=== PATIENT | male | born 1965 | race Caucasian/White ===

== ENCOUNTER 2017-05-09 17:50 | Emergency (ER) | payer OTHER ==
[~2017-05-09] VITALS: Ht 177.8 cm; Wt 79.0 kg
[~2017-05-09 17:50] MED LIST: ALDACTONE100 MG PO; ASPIRIN81 M1 PO; Aspirin E.C. PO; Chronulac,Cephulac PO; Chronulac,Cephulac,E PO; Habitrol,Nicoderm CQ TD; Hytone 2.5% TP; K-Dur PO; MORPHINE SULFAT15 M1 PO; MS Contin,Oramorph S PO; PriLOSEC PO; Protonix PO; Pyridoxine,Vitamin B PO; Theragran-M,Centrum, PO; VICOPROFEN1 TABLET PO; ZESTRIL40 MG PO; Zestril,Prinivil PO
[2017-05-09] MEDS ORDERED: FLOXIN OTIC SOLN5 ML RIGHT EAR (19:03)
[2017-05-09] MEDS ORDERED: AMOXICILLIN500 MG PO (19:04)
[2017-05-09] MEDS ORDERED: NAPROSYN500 MG PO (19:04)
[2017-05-09 19:13] VITALS: BP 169/96
== END 2017-05-09 19:14 | disposition home or self-care (01) ==
LOC: EME 17:50
DX: H60.502 Unspecified acute noninfective otitis externa, left ear (principal); Z87.891 Personal history of nicotine dependence
CPT/HCPCS: 99281; 99283

== ENCOUNTER 2017-11-30 15:11 | Emergency (ER) | payer OTHER ==
[~2017-11-30] VITALS: Ht 177.8 cm; Wt 83.8 kg
[~2017-11-30 15:11] MED LIST changes: +AMOXICILLIN500 MG PO; +FLOXIN OTIC SOLN5 ML RIGHT EAR; +NAPROSYN500 MG PO
[2017-11-30 19:26] LABS: APPEARANCE CLEAR ((CLEAR)); BILIRUBIN NEGATIVE; BLOOD MODERATE; COLOR YELLOW ((YELLOW)); GLUCOSE (STRIP) NEGATIVE; KETONES NEGATIVE; LEUKOCYTES NEGATIVE; NITRITE NEGATIVE; PROTEIN (STRIP) 30; SPECIFIC GRAVITY 1.011 (1.000-1.030); UROBILINOGEN 0.2 MG/DL (0.2-1.0)
[2017-11-30 19:40] LABS: BACTERIA RARE /HPF; EPITHELIAL CELLS RARE /HPF; MUCUS NONE SEEN /LPF; UCUL ADDED? NO; WHITE BLOOD CELLS 0-5 /HPF (0-5)
[2017-11-30 20:21] VITALS: BP 182/109
== END 2017-11-30 20:21 | disposition home or self-care (01) ==
LOC: EME 15:11
PROVIDERS: Physician Assistant Medical
DX: N43.3 Hydrocele, unspecified (principal); I10 Essential (primary) hypertension; F17.200 Nicotine dependence, unspecified, uncomplicated
CPT/HCPCS: 76870; 81003; 99281; 99284

== ENCOUNTER 2018-01-27 16:53 | Emergency (ER) | payer OTHER ==
[~2018-01-27] VITALS: Ht 177.8 cm; Wt 80.0 kg
[2018-01-27 17:51] LABS: INTER. NORMALIZED RATIO 1.2
[2018-01-27 17:54] LABS: PTT 34.1 SEC (25-37)
[2018-01-27 20:30] VITALS: BP 156/80
== END 2018-01-27 20:31 | disposition home or self-care (01) ==
LOC: EME 16:53
PROVIDERS: Physician Assistant Medical
DX: M79.89 Other specified soft tissue disorders (principal); I10 Essential (primary) hypertension; K74.60 Unspecified cirrhosis of liver; K21.9 Gastro-esophageal reflux disease without esophagitis; F17.200 Nicotine dependence, unspecified, uncomplicated
CPT/HCPCS: 85610; 85730; 93971; 99281; 99284; J3010